=== PATIENT | female | born 1975 | race Caucasian/White ===

== ENCOUNTER → 2021-08-29 08:41 | Outpatient (CLI) | payer OTHER, SELFPAY ==
[2021-08-29 20:23] LABS: SARS-CoV-2 RNA PCR Negative
== END ==
PROVIDERS: PCP Internal Medicine; Visit Provider Nurse Practitioner
DX: R51.9 Headache, unspecified (principal); R53.83 Other fatigue; Z20.822 Contact with and (suspected) exposure to COVID-19
CPT/HCPCS: C9803; U0003; U0005

== ENCOUNTER 2023-03-26 08:44 | Day surgery (SDC) | payer OTHER, SELFPAY ==
--- NOTE | 2023-03-24 11:08 | WPDANESEPPF ---
Anes - Initial Pre Proc Eval Procedure: Operation Date: 03/26/23 10:30 Proposed Procedures p Esophagogastroduodenoscopy - Aquiles Hartman MD s Screening Colonoscopy - Aquiles Hartman MD Date/Time: 03/24/23 11:08 Surgeon: Aquiles Hartman MD Pre Op Diagnosis: neoplasia screening, family hx of esoph. cancer Patient Data Age: 47 Gender: F Height: 1.74 m Weight: 107 kg Allergies Allergy/AdvReac Type Severity Reaction Status Date / Time doxycycline Allergy Severe SWELLING Verified 03/26/23 09:22 OF TONGUE AND LIPS Home Medications Medication Instructions Recorded Confirmed Type cetirizine 10 mg capsule (Zyrtec) 10 mg PO DAILY 07/30/19 03/09/23 History venlafaxine 75 mg tablet 75 mg PO DAILY 02/05/20 03/09/23 History topiramate 50 mg tablet (Topamax) 75 mg PO QHS 02/08/22 03/09/23 History fluticasone propionate 50 1 spray intranasal BID #16 grams 05/29/22 03/09/23 Rx mcg/actuation nasal spray,suspension (Flonase Allergy Relief) rizatriptan 5 mg tablet 5 mg PO ONCE 05/29/22 03/09/23 History cholecalciferol (vitamin D3) 1,250 1,250 mcg PO WEEKLY #8 tabs 02/23/23 03/09/23 Rx mcg (50,000 unit) tablet sodium,potassium,mag sulfates 17.5 See Rx Instructions PO .COMPLEX 03/22/23 Rx gram-3.13 gram-1.6 gram oral soln #354 mL (Suprep Bowel Prep Kit) Patient hx anesthesia problems: none Family hx anesthesia problems: none Results Review: All pre-operative results and documents have been reviewed as part of the pre-operative evaluation. 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 Family History Family History Grandparent Diabetes mellitus Hypertension Malignant neoplasm of prostate Sibling Hypertension Crohn's disease Diabetes mellitus Father Esophageal cancer Social History Social History Smoking status: Never smoker Alcohol intake: current Drinks per week: 1 Alcohol use details: rarely Substance use: never Substance use type: does not use Lack of Transportation: No Lack of Food: Never True Current Housing: I Have Housing Concerned About Future Housing: No Difficulty Paying Gas/Electric Bills: No Difficulty Paying for Meds: No Currently Unemployed: No Education: Master's Degree or Higher Difficulty w/ Childcare or Family Care: No Living arrangements: with family Spiritual care concerns: No Anes - Eval Final PreProcedure Day of Procedure 03/24/23 11:08 Patient weight: obese Heart: regular rate and rhythm Lungs: clear to auscultation Airway: Mallampati scale class II Neurological: alert and oriented Last oral intake: >/= 8 hours ASA classification: II Emergent: no Anesthetic plan: proceed Anesthesia type and monitoring: general GIVS and standard monitoring Results Review: All pre-operative results and documents have been reviewed as part of the pre-operative evaluation. Informed Consent: The patient's anesthetic plan and its attendant risks and benefits were discussed with the patient/family/POA. Questions were solicited and answers provided to the satisfaction of the patient/family/POA.
[2023-03-26 09:24] VITALS: BP 140/100; PULSE 72; RESP 16; TEMP 36.8; O2SAT 99
[2023-03-26] MEDS: LACTATED RINGERS 1,000 ML 150 ML IV CONT (09:31)
--- NOTE | 2023-03-26 09:37 | PM.HPGS ---
History of Present Illness History of Present Illness Consent: Risks, benefits, and alternatives have been discussed and questions answered. Patient agrees to proceed with procedure. Chief complaint: neoplasia screening, family hx of irma. cancer Narrative: Sandra Sosa is a 47 year old female Presents for both colonoscopy and has never had screening colonoscopy. Her bowel habits are normal. Denies any bleeding. Her appetite is good. Her weight has remained normal. Patient's family history is significant that her father had esophageal cancer. Patient presents today for EGD for concern over this. Patient denies heartburn. On questioning states recently has had phlegm in her throat and difficulty clearing this. Review of Systems Review of Systems: Review of systems noncontributory. 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 Family History Family History Grandparent Diabetes mellitus Hypertension Malignant neoplasm of prostate Sibling Hypertension Crohn's disease Diabetes mellitus Father Esophageal cancer Social History Social History Smoking status: Never smoker Alcohol intake: current Drinks per week: 1 Alcohol use details: rarely Substance use: never Substance use type: does not use Lack of Transportation: No Lack of Food: Never True Current Housing: I Have Housing Concerned About Future Housing: No Difficulty Paying Gas/Electric Bills: No Difficulty Paying for Meds: No Currently Unemployed: No Education: Master's Degree or Higher Difficulty w/ Childcare or Family Care: No Living arrangements: with family Spiritual care concerns: No Meds Home Medications and Allergies Home Medications Medication Instructions Recorded Confirmed Type cetirizine 10 mg capsule (Zyrtec) 10 mg PO DAILY 07/30/19 03/09/23 History venlafaxine 75 mg tablet 75 mg PO DAILY 02/05/20 03/09/23 History topiramate 50 mg tablet (Topamax) 75 mg PO QHS 02/08/22 03/09/23 History fluticasone propionate 50 1 spray intranasal BID #16 grams 05/29/22 03/09/23 Rx mcg/actuation nasal spray,suspension (Flonase Allergy Relief) rizatriptan 5 mg tablet 5 mg PO ONCE 05/29/22 03/09/23 History cholecalciferol (vitamin D3) 1,250 1,250 mcg PO WEEKLY #8 tabs 02/23/23 03/09/23 Rx mcg (50,000 unit) tablet sodium,potassium,mag sulfates 17.5 See Rx Instructions PO .COMPLEX 03/22/23 Rx gram-3.13 gram-1.6 gram oral soln #354 mL (Suprep Bowel Prep Kit) Allergies Allergy/AdvReac Type Severity Reaction Status Date / Time doxycycline Allergy Severe SWELLING Verified 03/26/23 09:22 OF TONGUE AND LIPS Vital Signs Vital Signs - 24 hr 03/26/23 09:24 Temperature 98.2 F Pulse Rate 72 Respiratory Rate 16 Blood Pressure 140/100 H Pulse Oximetry 99 Oxygen Delivery Room Air Exam Narrative: Physical exam reveals patient to be alert. Vital signs stable. HEENT exam is unremarkable. Patient is anicteric. His are clear to auscultation and to percussion. Heart is without murmur or extra sounds. Abdomen bowel sounds are present soft nontender with no organomegaly. Digital external rectal exam normal. Assessment and Plan Assessment and plan (1) Screening for colon cancer: Code(s): Z12.11 - Encounter for screening for malignant neoplasm of colon Status: Acute Assessment and Plan: Patient presents for neoplasia screening colonoscopy. Appears to be at average risk. Further recommendations may be given after endoscop
[2023-03-26 10:38] VITALS: BP 136/83; PULSE 62; RESP 16; O2SAT 99
[2023-03-26 10:48] VITALS: BP 125/79; PULSE 58; RESP 16; O2SAT 100
[2023-03-26 10:58] VITALS: BP 124/79; PULSE 66; RESP 16; O2SAT 100
--- NOTE | 2023-03-26 12:34 | WPDANESPN ---
Anes - Prog Note Post-Op Date/Time: 03/26/23 12:34 Cardiovascular status: normal Respiratory status: normal Airway patency: baseline Mental status: baseline Post-Op hydration status: normal Vital Signs: Last Vital Signs Temp 36.8 C 03/26/23 09:24 Pulse 66 03/26/23 10:58 Resp 16 03/26/23 10:58 BP 124/79 03/26/23 10:58 Pulse Ox 100 03/26/23 10:58 O2 Del Method Room Air 03/26/23 10:58 Pain Score (VAS): 0 I/O: Intake & Output 03/25/23 03/26/23 03/26/23 23:59 07:59 15:59 Intake Total 600 Balance 600 Post-procedural complaints: none Patient Feedback: Patient satisfied with anesthetic care. Other Findings: Patient vital signs back to baseline. Patient denies nausea and vomiting. Patient's pain under control. Patient OK for discharge.
== END 2023-03-26 11:20 | disposition home or self-care (01) ==
PROVIDERS: PCP Internal Medicine; Visit Provider Internal Medicine Gastroenterology
PROC: 0DJ08ZZ Inspection of Upper Intestinal Tract, Via Natural or Artificial Opening Endoscopic (ICD-10-PCS; CPT 43235; principal; 2023-03-26 10:30)
PROC: 0DJD8ZZ Inspection of Lower Intestinal Tract, Via Natural or Artificial Opening Endoscopic (ICD-10-PCS; CPT 45378; 2023-03-26 10:30)
DX: Z12.11 Encounter for screening for malignant neoplasm of colon (principal); Z80.0 Family history of malignant neoplasm of digestive organs; K64.8 Other hemorrhoids
CPT/HCPCS: 45378; 43235